=== PATIENT | female | born 1960 | race Caucasian/White ===

== ENCOUNTER 2017-03-27 13:03 | Inpatient (IN) | payer MEDICAID ==
[~2017-03-27] VITALS: Ht 162.6 cm; Wt 82.0 kg
[~2017-03-27 13:03] MED LIST: ALBU8.5H5 INH; AMLO10TA2 PO; ASPI-515 PO; ATOR20TA9 PO; GLIP10TA13 PO; HALO5AMP3 IM; INSU100V3 SQ-INSULIN; LISI40TA PO; MAGN400T26 PO; METF10002 PO; RISP1TAB3 PO; SENN1TAB7 PO; SITA50TA PO; TRIH2TAB3 PO
[2017-03-27 14:01] LABS: DAU SCREEN DISCLAIMER
[2017-03-27 14:04] LABS: ASPARTATE AMINO TRANSFERASE 12 U/L (15-37); BLOOD UREA NITROGEN 7 mg/dL (7-18)
[2017-03-27 14:07] LABS: ACETAMINOPHEN < 2 mcg/mL (10-30)
[2017-03-27] MEDS: SODIUM CHLORIDE 0.9% 1,000 ML IV SCH ×2 (15:53→17:59)
[2017-03-27] MEDS ORDERED: GUAIFENESIN/DM 200-20MG, 10ML UDC PO PRN (16:00)
[2017-03-27] MEDS ORDERED: ONDANSETRON 2MG/ML, 2ML IVPush PRN (16:00)
[2017-03-27] MEDS ORDERED: HYDROcodone/APAP 5/325 TABLET PO PRN (16:00)
[2017-03-27] MEDS: INSULIN ASPART 100 UNITS/ML, PEN SQ-INSULIN SCH ×2 (16:00→21:42)
[2017-03-27 17:09] VITALS: BP 173/87
[2017-03-27 18:27] VITALS: BP 155/76
[2017-03-27] MEDS: FAMOTIDINE 20 MG TABLET PO SCH (21:42)
[2017-03-27] MEDS: RISPERIDONE 1 MG TABLET PO SCH (21:43)
[2017-03-28 00:38] VITALS: BP 139/75
[2017-03-28] MEDS ORDERED: TEMAZEPAM 15 MG CAPSULE PO ONE (01:00)
[2017-03-28 01:01] VITALS: BP 144/81
[2017-03-28 05:49] LABS: BLOOD UREA NITROGEN 11 mg/dL (7-18)
[2017-03-28 06:42] VITALS: BP 145/72
[2017-03-28] MEDS: FAMOTIDINE 20 MG TABLET PO SCH (08:04)
[2017-03-28] MEDS: LISINOPRIL 20 MG TABLET PO SCH (08:05)
[2017-03-28] MEDS: INSULIN ASPART 100 UNITS/ML, PEN SQ-INSULIN SCH ×4 (08:05→21:25)
[2017-03-28] MEDS: SODIUM CHLORIDE 0.9% 1,000 ML IV SCH ×2 (08:06→16:36)
[2017-03-28] MEDS ORDERED: MAGNESIUM SULFATE PMX 2GM/50ML 50 ML IV ONE (09:30)
[2017-03-28 13:21] VITALS: BP 130/70
[2017-03-28] MEDS ORDERED: TEMAZEPAM 15 MG CAPSULE PO PRN (14:30)
[2017-03-28] MEDS: metFORMIN 500 MG TABLET PO SCH (16:36)
[2017-03-28] MEDS: HALOPERIDOL 1 MG TABLET PO PRN ×2 (18:57→19:28)
[2017-03-28 19:21] VITALS: BP 176/85
[2017-03-28] MEDS: RISPERIDONE 1 MG TABLET PO SCH (21:24)
[2017-03-29] MEDS: SODIUM CHLORIDE 0.9% 1,000 ML IV SCH ×2 (00:16→08:19)
[2017-03-29 03:00] VITALS: BP 119/74
[2017-03-29 06:12] LABS: ASPARTATE AMINO TRANSFERASE 5 U/L (15-37); BLOOD UREA NITROGEN 11 mg/dL (7-18)
[2017-03-29 07:43] VITALS: BP 156/72
[2017-03-29] MEDS: INSULIN ASPART 100 UNITS/ML, PEN SQ-INSULIN SCH ×4 (08:20→21:13)
[2017-03-29] MEDS: MAGNESIUM OXIDE 400 MG TABLET PO SCH (08:21)
[2017-03-29] MEDS: metFORMIN 500 MG TABLET PO SCH ×2 (08:22→17:10)
[2017-03-29] MEDS: LISINOPRIL 20 MG TABLET PO SCH (08:22)
[2017-03-29] MEDS ORDERED: MAGNESIUM SULFATE PMX 2GM/50ML 50 ML IV ONE ×2 (08:30)
[2017-03-29] MEDS ORDERED: MAGNESIUM OXIDE 400 MG TABLET PO SCH (09:00)
[2017-03-29 13:14] VITALS: BP 150/74
[2017-03-29] MEDS ORDERED: LISI-170 PO (14:25)
[2017-03-29] MEDS ORDERED: HALO1TAB PO (14:25)
[2017-03-29] MEDS ORDERED: MAGN400T26 PO (14:25)
[2017-03-29 15:28] VITALS: BP 169/83
[2017-03-29] MEDS: HALOPERIDOL 1 MG TABLET PO PRN (19:22)
[2017-03-29 19:31] VITALS: BP 182/88
[2017-03-29] MEDS: RISPERIDONE 1 MG TABLET PO SCH (21:15)
[2017-03-29 21:30] VITALS: BP 122/72
[2017-03-30 08:01] VITALS: BP 153/79
[2017-03-30] MEDS: INSULIN ASPART 100 UNITS/ML, PEN SQ-INSULIN SCH ×4 (08:41→21:07)
[2017-03-30] MEDS: metFORMIN 500 MG TABLET PO SCH ×2 (08:57→17:32)
[2017-03-30] MEDS: MAGNESIUM OXIDE 400 MG TABLET PO SCH (08:57)
[2017-03-30] MEDS: LISINOPRIL 20 MG TABLET PO SCH (08:59)
[2017-03-30] MEDS: ONDANSETRON ODT 4 MG PO PRN (16:08)
[2017-03-30] MEDS: HALOPERIDOL 1 MG TABLET PO PRN (16:32)
[2017-03-30] MEDS ORDERED: MAGNESIUM HYDROXIDE 8%, 30ML UDC PO PRN (17:30)
[2017-03-30] MEDS ORDERED: POLYETHYLENE GLYCOL 17 GM PACKET PO PRN (17:30)
[2017-03-30] MEDS: ACETAMINOPHEN 325 MG TABLET PO PRN (17:32)
[2017-03-30 18:00] VITALS: BP 176/88
[2017-03-30 19:45] VITALS: BP 154/85
[2017-03-30] MEDS: RISPERIDONE 1 MG TABLET PO SCH (21:11)
[2017-03-31 08:30] VITALS: BP 154/84
[2017-03-31] MEDS: metFORMIN 500 MG TABLET PO SCH ×2 (08:41→16:27)
[2017-03-31] MEDS: MAGNESIUM OXIDE 400 MG TABLET PO SCH (08:41)
[2017-03-31] MEDS: LISINOPRIL 20 MG TABLET PO SCH (08:42)
[2017-03-31] MEDS: INSULIN ASPART 100 UNITS/ML, PEN SQ-INSULIN SCH ×4 (08:43→20:38)
[2017-03-31] MEDS: ACETAMINOPHEN 325 MG TABLET PO PRN (14:28)
[2017-03-31 14:34] VITALS: BP 146/75
[2017-03-31 19:26] VITALS: BP 135/74
[2017-03-31] MEDS: RISPERIDONE 1 MG TABLET PO SCH (20:39)
[2017-03-31] MEDS: HALOPERIDOL 1 MG TABLET PO PRN (20:43)
[2017-04-01] MEDS: INSULIN ASPART 100 UNITS/ML, PEN SQ-INSULIN SCH ×5 (08:00→21:00)
[2017-04-01] MEDS: metFORMIN 500 MG TABLET PO SCH ×2 (08:30→17:00)
[2017-04-01] MEDS: LISINOPRIL 20 MG TABLET PO SCH (08:30)
[2017-04-01] MEDS: MAGNESIUM OXIDE 400 MG TABLET PO SCH (08:30)
[2017-04-01] MEDS: RISPERIDONE 1 MG TABLET PO SCH (21:00)
[2017-04-02 08:00] VITALS: BP 142/85
[2017-04-02] MEDS: INSULIN ASPART 100 UNITS/ML, PEN SQ-INSULIN SCH ×4 (08:00→20:45)
[2017-04-02] MEDS: LISINOPRIL 20 MG TABLET PO SCH (08:30)
[2017-04-02] MEDS: MAGNESIUM OXIDE 400 MG TABLET PO SCH (08:30)
[2017-04-02] MEDS: metFORMIN 500 MG TABLET PO SCH ×2 (08:30→16:48)
[2017-04-02 19:20] VITALS: BP 146/78
[2017-04-02] MEDS: HALOPERIDOL 1 MG TABLET PO PRN (20:44)
[2017-04-02] MEDS: RISPERIDONE 1 MG TABLET PO SCH (21:00)
[2017-04-03 07:38] VITALS: BP 114/79
[2017-04-03] MEDS: INSULIN ASPART 100 UNITS/ML, PEN SQ-INSULIN SCH ×4 (07:53→20:18)
[2017-04-03] MEDS: metFORMIN 500 MG TABLET PO SCH ×2 (07:54→16:37)
[2017-04-03] MEDS: MAGNESIUM OXIDE 400 MG TABLET PO SCH (08:16)
[2017-04-03] MEDS: LISINOPRIL 20 MG TABLET PO SCH (08:16)
[2017-04-03] MEDS: ONDANSETRON ODT 4 MG PO PRN (12:25)
[2017-04-03 19:52] VITALS: BP 97/65
[2017-04-03] MEDS: RISPERIDONE 1 MG TABLET PO SCH (21:00)
[2017-04-04 07:24] VITALS: BP 107/70
[2017-04-04] MEDS: metFORMIN 500 MG TABLET PO SCH ×2 (08:15→16:26)
[2017-04-04] MEDS: INSULIN ASPART 100 UNITS/ML, PEN SQ-INSULIN SCH ×4 (08:15→20:00)
[2017-04-04] MEDS: MAGNESIUM OXIDE 400 MG TABLET PO SCH (08:20)
[2017-04-04] MEDS: LISINOPRIL 20 MG TABLET PO SCH (08:20)
[2017-04-04] MEDS: CHOLESTYRAMINE LIGHT 4GM PACKET PO SCH (09:49)
[2017-04-04 13:57] VITALS: BP 131/83
[2017-04-04 19:26] VITALS: BP 129/84
[2017-04-04] MEDS: RISPERIDONE 1 MG TABLET PO SCH (20:00)
[2017-04-04] MEDS: HALOPERIDOL 1 MG TABLET PO PRN (20:02)
[2017-04-05 08:03] VITALS: BP 123/80
[2017-04-05] MEDS: CHOLESTYRAMINE LIGHT 4GM PACKET PO SCH (08:24)
[2017-04-05] MEDS: metFORMIN 500 MG TABLET PO SCH ×2 (08:24→16:15)
[2017-04-05] MEDS: MAGNESIUM OXIDE 400 MG TABLET PO SCH (08:25)
[2017-04-05] MEDS: LISINOPRIL 20 MG TABLET PO SCH (08:25)
[2017-04-05] MEDS: INSULIN ASPART 100 UNITS/ML, PEN SQ-INSULIN SCH ×4 (08:26→20:41)
[2017-04-05 19:22] VITALS: BP 143/80
[2017-04-05] MEDS: RISPERIDONE 1 MG TABLET PO SCH (20:42)
[2017-04-06] MEDS: LISINOPRIL 20 MG TABLET PO SCH (08:13)
[2017-04-06] MEDS: CHOLESTYRAMINE LIGHT 4GM PACKET PO SCH (08:13)
[2017-04-06] MEDS: INSULIN ASPART 100 UNITS/ML, PEN SQ-INSULIN SCH ×4 (08:13→21:05)
[2017-04-06] MEDS: MAGNESIUM OXIDE 400 MG TABLET PO SCH (08:13)
[2017-04-06] MEDS: metFORMIN 500 MG TABLET PO SCH ×2 (08:14→16:16)
[2017-04-06 08:21] VITALS: BP 136/77
[2017-04-06] MEDS: ONDANSETRON ODT 4 MG PO PRN (17:17)
[2017-04-06 17:30] LABS: HCG UR OBC PASS
[2017-04-06] MEDS ORDERED: POLYETHYLENE GLYCOL 17 GM PACKET PO PRN (18:30)
[2017-04-06] MEDS ORDERED: ALUMINUM/MAG/SIMETHICONE 30 ML UDC PO PRN (18:30)
[2017-04-06] MEDS ORDERED: GUAIFENESIN/DM 200-20MG, 10ML UDC PO PRN (18:30)
[2017-04-06 19:20] VITALS: BP 135/83
[2017-04-06] MEDS: TRAZODONE 50MG TABLET PO SCH (21:02)
[2017-04-06] MEDS: RISPERIDONE 1 MG TABLET PO SCH (21:06)
[2017-04-07 07:43] VITALS: BP 94/63
[2017-04-07] MEDS: metFORMIN 500 MG TABLET PO SCH ×2 (08:07→16:34)
[2017-04-07] MEDS: LISINOPRIL 20 MG TABLET PO SCH (08:07)
[2017-04-07] MEDS: CHOLESTYRAMINE LIGHT 4GM PACKET PO SCH (08:07)
[2017-04-07] MEDS: MAGNESIUM OXIDE 400 MG TABLET PO SCH (08:07)
[2017-04-07] MEDS: INSULIN ASPART 100 UNITS/ML, PEN SQ-INSULIN SCH ×4 (08:14→20:17)
[2017-04-07 19:58] VITALS: BP 144/83
[2017-04-07] MEDS: TRAZODONE 50MG TABLET PO SCH (20:13)
[2017-04-07] MEDS: RISPERIDONE 1 MG TABLET PO SCH (20:14)
[2017-04-08 07:48] VITALS: BP 114/74
[2017-04-08] MEDS: metFORMIN 500 MG TABLET PO SCH ×2 (08:21→17:12)
[2017-04-08] MEDS: MAGNESIUM OXIDE 400 MG TABLET PO SCH (08:21)
[2017-04-08] MEDS: LISINOPRIL 20 MG TABLET PO SCH (08:21)
[2017-04-08] MEDS: CHOLESTYRAMINE LIGHT 4GM PACKET PO SCH (08:22)
[2017-04-08] MEDS: INSULIN ASPART 100 UNITS/ML, PEN SQ-INSULIN SCH ×4 (08:22→20:07)
[2017-04-08] MEDS: ACETAMINOPHEN 325 MG TABLET PO PRN (19:15)
[2017-04-08 20:00] VITALS: BP 150/86
[2017-04-08] MEDS: TRAZODONE 50MG TABLET PO SCH (20:07)
[2017-04-08] MEDS: RISPERIDONE 1 MG TABLET PO SCH (20:07)
[2017-04-09] MEDS: INSULIN ASPART 100 UNITS/ML, PEN SQ-INSULIN SCH ×2 (07:30→11:45)
[2017-04-09] MEDS: metFORMIN 500 MG TABLET PO SCH (08:00)
[2017-04-09 08:31] VITALS: BP 121/77
[2017-04-09] MEDS: MAGNESIUM OXIDE 400 MG TABLET PO SCH (08:36)
[2017-04-09] MEDS: LISINOPRIL 20 MG TABLET PO SCH (08:36)
[2017-04-09] MEDS: CHOLESTYRAMINE LIGHT 4GM PACKET PO SCH (08:37)
[2017-04-09] MEDS ORDERED: GLIP5TAB10 PO (12:23)
[2017-04-09] MEDS ORDERED: METF500T PO (12:23)
== END 2017-04-09 13:08 | DRG 641 ==
LOC: ED 15:40 → EDIP 15:42 → ED 15:54 → 3NE 17:02 → 3E 03-29 15:22
PROVIDERS: ADMIT Internal Medicine; ATTEND Internal Medicine
DX: E87.1 Hypo-osmolality and hyponatremia (principal); R45.851 Suicidal ideations; E11.65 Type 2 diabetes mellitus with hyperglycemia; E03.9 Hypothyroidism, unspecified; F20.9 Schizophrenia, unspecified; F22 Delusional disorders; I10 Essential (primary) hypertension; D63.8 Anemia in other chronic diseases classified elsewhere; J44.9 Chronic obstructive pulmonary disease, unspecified; R19.7 Diarrhea, unspecified; E87.6 Hypokalemia; E83.42 Hypomagnesemia; Z59.0 Homelessness; Z91.19 Patient's noncompliance with other medical treatment and regimen; Z90.89 Acquired absence of other organs; Z90.49 Acquired absence of other specified parts of digestive tract; Z98.51 Tubal ligation status
CPT/HCPCS: 36415; 80048; 80053; 80061; 80307; 80329; 81025; 82962; 83036; 83735; 84100; 84443; 84702; 84703; 85025; 93005; J1815; Q0162; G0480; J3475; J7030

== ENCOUNTER 2018-11-20 15:30 | Inpatient (IN) | payer MEDICAID ==
[~2018-11-20] VITALS: Ht 157.5 cm; Wt 82.9 kg
[~2018-11-20 15:30] MED LIST changes: -AMLO10TA2 PO; +AMLO10TA8 PO; +ATOR20TA37 PO; -ATOR20TA9 PO; +CHOL5POW PO; +FAMO-79 PO; +GLIP5TAB10 PO; +HALO1TAB PO; +HYDR-3240 PO; +LISI-170 PO; +METF500T PO; -SENN1TAB7 PO; +SENN1TAB8 PO
[2018-11-20] MEDS ORDERED: ONDANSETRON ODT 4 MG PO PRN (16:00)
[2018-11-20] MEDS ORDERED: ACETAMINOPHEN 325 MG TABLET PO PRN (16:00)
[2018-11-20] MEDS ORDERED: DOCUSATE 100 MG CAPSULE PO PRN (16:00)
[2018-11-20] MEDS ORDERED: POLYETHYLENE GLYCOL 17 GM PACKET PO PRN (16:00)
[2018-11-20] MEDS ORDERED: SENNA/DOCUSATE TABLET PO PRN (16:00)
[2018-11-20] MEDS ORDERED: BISACODYL 10 MG SUPP PR PRN (16:00)
[2018-11-20] MEDS ORDERED: SITA100T PO (16:12)
[2018-11-20] MEDS ORDERED: OXYB10TA PO (16:12)
[2018-11-20] MEDS ORDERED: METF500T17 PO (16:12)
[2018-11-20] MEDS ORDERED: INSU100C5 SQ-INSULIN (16:12)
[2018-11-20] MEDS ORDERED: FAMO20TA7 PO (16:12)
[2018-11-20] MEDS ORDERED: LISI-420 PO (16:12)
[2018-11-20] MEDS ORDERED: INSU100I13 SC (16:12)
[2018-11-20] MEDS ORDERED: FAMO1TAB3 PO (16:12)
[2018-11-20] MEDS ORDERED: Glargine (17:12)
[2018-11-20] MEDS ORDERED: TRAM50TA2 PO (17:14)
[2018-11-20 17:51] VITALS: BP_SYST 167; BP_SYST 170; BP_DIAS 110; BP_DIAS 92
[2018-11-20] MEDS ORDERED: ONDANSETRON ODT 4 MG ONE (17:51)
[2018-11-20] MEDS ORDERED: CALCIUM CARBONATE 500 MG TAB.CHEW ONE ×2 (18:11→18:16)
[2018-11-20] MEDS: CALCIUM CARBONATE 500 MG TAB.CHEW PO PRN (18:18)
[2018-11-20 18:21] VITALS: BP 167/110
[2018-11-20 18:50] VITALS: BP 159/76
[2018-11-20] MEDS ORDERED: GLUCAGON 1 MG IM PRN (20:00)
[2018-11-20] MEDS ORDERED: DEXTROSE 4 GM TAB.CHEW PO PRN (20:00)
[2018-11-20] MEDS ORDERED: DEXTROSE 50%, 50ML SYRINGE IVPush PRN (20:00)
[2018-11-20 20:23] VITALS: BP 158/85
[2018-11-20] MEDS: TRAZODONE 50MG TABLET PO SCH (20:31)
[2018-11-20] MEDS ORDERED: ZIPRASIDONE 20 MG INJ IM ONE ×2 (20:36→21:00)
[2018-11-20] MEDS: INSULIN GLARGINE 100 UNITS/ML, PEN SQ-INSULIN SCH (20:49)
[2018-11-20] MEDS: metFORMIN 500 MG TABLET PO SCH (20:50)
[2018-11-20] MEDS: INSULIN LISPRO 100 UNITS/ML, PEN SQ-INSULIN SCH (20:50)
[2018-11-20] MEDS ORDERED: SODIUM CHLORIDE FLUSH 10ML SYR IVF SCH (21:00)
[2018-11-20 21:40] LABS: CULTURE INDICATED? YES; MICROSCOPIC INDICATED
[2018-11-21 07:57] VITALS: BP 151/80
[2018-11-21] MEDS: INSULIN LISPRO 100 UNITS/ML, PEN SQ-INSULIN SCH ×4 (08:17→19:50)
[2018-11-21] MEDS: metFORMIN 500 MG TABLET PO SCH ×2 (08:18→16:09)
[2018-11-21 08:41] LABS: HCT (SEDRATE) 42.1 % (34.6-47.8)
[2018-11-21 08:53] LABS: ALANINE AMINOTRANSFERASE 14 U/L (12-78); CHLORIDE 93 mmol/L (98-107); CREATININE 0.92 mg/dL (0.55-1.02)
[2018-11-21] MEDS ORDERED: LURASIDONE 20 MG TABLET PO SCH (09:00)
[2018-11-21] MEDS ORDERED: FLUOXETINE HCL 20 MG CAPSULE PO SCH (09:00)
[2018-11-21 09:17] LABS: ALKALINE PHOSPHATASE 77 U/L (45-117); ANION GAP 6 mmol/L (5-15); BILIRUBIN,TOTAL 0.4 mg/dL (0.2-1.0); CALCIUM 9.8 mg/dL (8.5-10.1); CHOL/HDL RATIO 3.6; CHOLESTEROL, TOTAL 175 mg/dL (140-239); HDL CHOL % 27 % (28-40); HDL CHOLESTEROL (DIRECT) 48 mg/dL (40-60); LDL CHOLESTEROL,CALCULATED 105 mg/dL (54-169); LDL/HDL RATIO 2.2 (0.5-3.0); T4 (THYROXINE) 16.2 mcg/dL (4.8-13.9); TOTAL PROTEIN 8.1 g/dL (6.4-8.2); TRIGLYCERIDES 111 mg/dL (50-200); VLDL CHOLESTEROL 22 mg/dL (0-25)
[2018-11-21] MEDS ORDERED: ZIPRASIDONE 20MG CAPSULE ONE (09:17)
[2018-11-21 09:20] VITALS: BP 182/77
[2018-11-21 09:30] LABS: MEAN CORPUSCULAR HEMOGLOBIN 27.9 pg (27.0-34.8); MEAN CORPUSCULAR HGB CONC 33.3 g/dL (32.4-35.8); MEAN CORPUSCULAR VOLUME 83.8 fL (80-100); RED BLOOD COUNT 5.05 x10^6/uL (3.82-5.3); RED CELL DISTRIBUTION WIDTH 13.6 % (9.6-15.2)
[2018-11-21] MEDS ORDERED: ZIPRASIDONE 20MG CAPSULE PO SCH (09:30)
[2018-11-21 09:51] LABS: BASOPHILS # (AUTO) 0.02 x10^3/uL (0-0.1); BASOPHILS % (AUTO) 0 % (0-1); EOSINOPHILS # (AUTO) 0.04 x10^3/uL (0-0.4); EOSINOPHILS % (AUTO) 1 % (1-7); LYMPHOCYTES # (AUTO) 1.29 x10^3/uL (1-3.4); LYMPHOCYTES % (AUTO) 15 % (22-44); MD SCAN; MEAN PLATELET VOLUME 9.9 fL (7.4-10.4); MONOCYTES # (AUTO) 0.41 x10^3/uL (0.2-0.8); MONOCYTES % (AUTO) 5 % (2-9); NEUTROPHILS # (AUTO) 7.17 x10^3/uL (1.8-6.8); NEUTROPHILS % (AUTO) 80 % (42-75); PLATELET COUNT 287 x10^3/uL (130-400)
[2018-11-21] MEDS ORDERED: ZIPRASIDONE 20 MG INJ IM ONE (11:00)
[2018-11-21 11:28] VITALS: BP 165/88
[2018-11-21] MEDS: CALCIUM CARBONATE 500 MG TAB.CHEW PO PRN ×2 (12:15→16:19)
[2018-11-21] MEDS ORDERED: GLUCAGON 1 MG IM PRN (17:30)
[2018-11-21] MEDS ORDERED: DEXTROSE 50%, 50ML SYRINGE IVPush PRN (17:30)
[2018-11-21] MEDS ORDERED: DEXTROSE 4 GM TAB.CHEW PO PRN (17:30)
[2018-11-21] MEDS: CEFTRIAXONE PMX 1GM/50ML 50 ML IV SCH (18:18)
[2018-11-21] MEDS: SODIUM CHLORIDE 0.9% 1,000 ML IV SCH (18:18)
[2018-11-21 18:20] LABS: LDL/HDL RATIO 2.4 (0.5-3.0)
[2018-11-21 18:32] LABS: HEMOGLOBIN A1C 8.1 % (4.2-6.3)
[2018-11-21 18:34] LABS: OSMOLALITY,URINE 252 mOsm/kg (500-850)
[2018-11-21 19:12] VITALS: BP 150/84
[2018-11-21] MEDS: TRAZODONE 50MG TABLET PO SCH (20:58)
[2018-11-21] MEDS: SODIUM CHLORIDE FLUSH 10ML SYR IVF SCH (20:58)
[2018-11-21] MEDS: ZIPRASIDONE 40MG CAPSULE PO SCH (20:58)
[2018-11-21] MEDS: INSULIN GLARGINE 100 UNITS/ML, PEN SQ-INSULIN SCH (20:59)
[2018-11-22] MEDS: SODIUM CHLORIDE 0.9% 1,000 ML IV SCH (02:56)
[2018-11-22 06:18] LABS: ALBUMIN 2.8 g/dL (3.4-5.0); ANION GAP 7 mmol/L (5-15); BASOPHILS # (AUTO) 0.03 x10^3/uL (0-0.1); BASOPHILS % (AUTO) 1 % (0-1); CALCIUM 8.7 mg/dL (8.5-10.1); CHLORIDE 101 mmol/L (98-107); CREATININE 0.74 mg/dL (0.55-1.02); EOSINOPHILS % (AUTO) 1 % (1-7); LYMPHOCYTES # (AUTO) 2.13 x10^3/uL (1-3.4); LYMPHOCYTES % (AUTO) 29 % (22-44); MD NO; MEAN CORPUSCULAR HEMOGLOBIN 28.4 pg (27.0-34.8); MEAN CORPUSCULAR HGB CONC 33.2 g/dL (32.4-35.8); MEAN CORPUSCULAR VOLUME 85.6 fL (80-100); MEAN PLATELET VOLUME 9.3 fL (7.4-10.4); MONOCYTES # (AUTO) 0.43 x10^3/uL (0.2-0.8); MONOCYTES % (AUTO) 6 % (2-9); NEUTROPHILS # (AUTO) 4.76 x10^3/uL (1.8-6.8); NEUTROPHILS % (AUTO) 64 % (42-75); PLATELET COUNT 246 x10^3/uL (130-400); RED BLOOD COUNT 4.08 x10^6/uL (3.82-5.3); RED CELL DISTRIBUTION WIDTH 13.1 % (9.6-15.2)
[2018-11-22] MEDS: INSULIN LISPRO 100 UNITS/ML, PEN SQ-INSULIN SCH ×4 (07:25→20:26)
[2018-11-22 07:30] VITALS: BP 170/83
[2018-11-22] MEDS ORDERED: MAGNESIUM SULFATE 4 GM in SODIUM CHLORIDE 0.9% 100 ML IV ONE (08:30)
[2018-11-22] MEDS: OXYBUTYNIN CHLORIDE 5 MG TABLET PO SCH (08:34)
[2018-11-22] MEDS: MAGNESIUM OXIDE 400 MG TABLET PO SCH (08:34)
[2018-11-22] MEDS: CHOLESTYRAMINE LIGHT 4GM PACKET PO SCH (08:35)
[2018-11-22] MEDS: SODIUM CHLORIDE FLUSH 10ML SYR IVF SCH ×2 (08:35→20:35)
[2018-11-22] MEDS ORDERED: LISINOPRIL 20 MG TABLET PO SCH (09:00)
[2018-11-22] MEDS: CALCIUM CARBONATE 500 MG TAB.CHEW PO PRN (15:04)
[2018-11-22] MEDS: CEFTRIAXONE PMX 1GM/50ML 50 ML IV SCH (18:15)
[2018-11-22 19:37] VITALS: BP 169/73
[2018-11-22] MEDS: INSULIN GLARGINE 100 UNITS/ML, PEN SQ-INSULIN SCH (20:28)
[2018-11-22] MEDS: TRAZODONE 50MG TABLET PO SCH (20:33)
[2018-11-22] MEDS: ZIPRASIDONE 40MG CAPSULE PO SCH (20:33)
[2018-11-22] MEDS: LISINOPRIL 20 MG TABLET PO SCH (20:34)
[2018-11-23] MEDS: CALCIUM CARBONATE 500 MG TAB.CHEW PO PRN ×3 (02:47→17:30)
[2018-11-23 02:57] VITALS: BP 132/78
[2018-11-23 06:25] LABS: ALBUMIN 3.7 g/dL (3.4-5.0); ANION GAP 9 mmol/L (5-15); CHLORIDE 102 mmol/L (98-107)
[2018-11-23 06:26] LABS: CREATININE 0.96 mg/dL (0.55-1.02)
[2018-11-23] MEDS ORDERED: MAGNESIUM SULFATE PMX 2GM/50ML 50 ML IV ONE (07:00)
[2018-11-23 07:36] VITALS: BP 171/84
[2018-11-23] MEDS: INSULIN LISPRO 100 UNITS/ML, PEN SQ-INSULIN SCH ×4 (07:40→21:21)
[2018-11-23] MEDS: SODIUM CHLORIDE FLUSH 10ML SYR IVF SCH ×2 (07:41→21:21)
[2018-11-23] MEDS: MAGNESIUM OXIDE 400 MG TABLET PO SCH (08:46)
[2018-11-23] MEDS: OXYBUTYNIN CHLORIDE 5 MG TABLET PO SCH (08:50)
[2018-11-23] MEDS: LISINOPRIL 20 MG TABLET PO SCH ×2 (08:50→21:20)
[2018-11-23] MEDS: CHOLESTYRAMINE LIGHT 4GM PACKET PO SCH (08:51)
[2018-11-23] MEDS: CEFTRIAXONE PMX 1GM/50ML 50 ML IV SCH (17:42)
[2018-11-23 20:38] VITALS: BP 151/84
[2018-11-23] MEDS: ZIPRASIDONE 40MG CAPSULE PO SCH (21:20)
[2018-11-23] MEDS: TRAZODONE 50MG TABLET PO SCH (21:20)
[2018-11-23] MEDS: INSULIN GLARGINE 100 UNITS/ML, PEN SQ-INSULIN SCH (21:21)
[2018-11-24 07:50] VITALS: BP 148/81
[2018-11-24] MEDS: INSULIN LISPRO 100 UNITS/ML, PEN SQ-INSULIN SCH ×4 (07:59→20:31)
[2018-11-24] MEDS: CHOLESTYRAMINE LIGHT 4GM PACKET PO SCH (08:24)
[2018-11-24] MEDS: OXYBUTYNIN CHLORIDE 5 MG TABLET PO SCH (08:24)
[2018-11-24] MEDS: MAGNESIUM OXIDE 400 MG TABLET PO SCH (08:24)
[2018-11-24] MEDS: CALCIUM CARBONATE 500 MG TAB.CHEW PO PRN (08:25)
[2018-11-24] MEDS: SODIUM CHLORIDE FLUSH 10ML SYR IVF SCH ×2 (08:25→21:10)
[2018-11-24] MEDS: LISINOPRIL 20 MG TABLET PO SCH ×2 (08:25→20:33)
[2018-11-24 20:26] VITALS: BP 169/81
[2018-11-24] MEDS: INSULIN GLARGINE 100 UNITS/ML, PEN SQ-INSULIN SCH (20:32)
[2018-11-24] MEDS: TRAZODONE 50MG TABLET PO SCH (20:33)
[2018-11-24] MEDS: ZIPRASIDONE 40MG CAPSULE PO SCH (20:33)
[2018-11-25] MEDS: CALCIUM CARBONATE 500 MG TAB.CHEW PO PRN (04:41)
[2018-11-25 07:46] VITALS: BP 167/81
[2018-11-25] MEDS: INSULIN LISPRO 100 UNITS/ML, PEN SQ-INSULIN SCH ×4 (07:55→21:17)
[2018-11-25] MEDS: MAGNESIUM OXIDE 400 MG TABLET PO SCH (08:42)
[2018-11-25] MEDS: OXYBUTYNIN CHLORIDE 5 MG TABLET PO SCH (08:42)
[2018-11-25] MEDS: CARBAMAZEPINE XR 200 MG TABLET PO SCH (08:42)
[2018-11-25] MEDS: LISINOPRIL 20 MG TABLET PO SCH ×2 (08:43→21:14)
[2018-11-25] MEDS: CHOLESTYRAMINE LIGHT 4GM PACKET PO SCH (08:43)
[2018-11-25] MEDS: SODIUM CHLORIDE FLUSH 10ML SYR IVF SCH ×2 (09:00→21:05)
[2018-11-25 20:59] VITALS: BP 159/73
[2018-11-25] MEDS: TRAZODONE 50MG TABLET PO SCH (21:13)
[2018-11-25] MEDS: ZIPRASIDONE 40MG CAPSULE PO SCH (21:14)
[2018-11-25] MEDS: INSULIN GLARGINE 100 UNITS/ML, PEN SQ-INSULIN SCH (21:18)
[2018-11-26] MEDS: INSULIN LISPRO 100 UNITS/ML, PEN SQ-INSULIN SCH ×4 (07:31→19:24)
[2018-11-26 07:51] VITALS: BP 166/81
[2018-11-26] MEDS ORDERED: ACETAMINOPHEN 325 MG TABLET ONE (08:30)
[2018-11-26] MEDS: CARBAMAZEPINE XR 200 MG TABLET PO SCH (08:33)
[2018-11-26] MEDS: OXYBUTYNIN CHLORIDE 5 MG TABLET PO SCH (08:33)
[2018-11-26] MEDS: CHOLESTYRAMINE LIGHT 4GM PACKET PO SCH (08:33)
[2018-11-26] MEDS: MAGNESIUM OXIDE 400 MG TABLET PO SCH (08:33)
[2018-11-26] MEDS: LISINOPRIL 20 MG TABLET PO SCH ×2 (08:34→19:23)
[2018-11-26] MEDS ORDERED: DIAZEPAM 5 MG TABLET ONE (18:38)
[2018-11-26] MEDS ORDERED: DIAZEPAM 5 MG TABLET PO ONE (19:00)
[2018-11-26] MEDS: ACETAMINOPHEN 325 MG TABLET PO PRN (19:22)
[2018-11-26] MEDS: ZIPRASIDONE 40MG CAPSULE PO SCH (19:23)
[2018-11-26] MEDS: TRAZODONE 50MG TABLET PO SCH (19:23)
[2018-11-26 19:25] VITALS: BP 107/67
[2018-11-26] MEDS: INSULIN GLARGINE 100 UNITS/ML, PEN SQ-INSULIN SCH (19:25)
[2018-11-27 07:30] VITALS: BP 172/76
[2018-11-27] MEDS: INSULIN LISPRO 100 UNITS/ML, PEN SQ-INSULIN SCH ×4 (08:01→19:27)
[2018-11-27 08:40] VITALS: BP 160/82
[2018-11-27] MEDS: CARBAMAZEPINE XR 200 MG TABLET PO SCH (08:59)
[2018-11-27] MEDS: CHOLESTYRAMINE LIGHT 4GM PACKET PO SCH (08:59)
[2018-11-27] MEDS: OXYBUTYNIN CHLORIDE 5 MG TABLET PO SCH (09:00)
[2018-11-27] MEDS: LISINOPRIL 20 MG TABLET PO SCH ×2 (09:00→19:26)
[2018-11-27] MEDS: MAGNESIUM OXIDE 400 MG TABLET PO SCH (09:00)
[2018-11-27 19:15] VITALS: BP 139/81
[2018-11-27] MEDS: ZIPRASIDONE 40MG CAPSULE PO SCH (19:26)
[2018-11-27] MEDS: TRAZODONE 50MG TABLET PO SCH (19:26)
[2018-11-27] MEDS: INSULIN GLARGINE 100 UNITS/ML, PEN SQ-INSULIN SCH (19:28)
[2018-11-27] MEDS ORDERED: DIAZEPAM 5 MG TABLET PO ONE (19:30)
[2018-11-28] MEDS: INSULIN LISPRO 100 UNITS/ML, PEN SQ-INSULIN SCH ×4 (07:45→20:23)
[2018-11-28 07:46] VITALS: BP 150/85
[2018-11-28] MEDS: OXYBUTYNIN CHLORIDE 5 MG TABLET PO SCH (08:55)
[2018-11-28] MEDS: LISINOPRIL 20 MG TABLET PO SCH ×2 (08:55→20:21)
[2018-11-28] MEDS: MAGNESIUM OXIDE 400 MG TABLET PO SCH (08:55)
[2018-11-28] MEDS: CHOLESTYRAMINE LIGHT 4GM PACKET PO SCH (08:55)
[2018-11-28] MEDS: CARBAMAZEPINE XR 200 MG TABLET PO SCH (08:55)
[2018-11-28] MEDS: ACETAMINOPHEN 325 MG TABLET PO PRN (18:10)
[2018-11-28] MEDS ORDERED: DIAZEPAM 5 MG TABLET ONE (19:36)
[2018-11-28 19:39] VITALS: BP 141/81
[2018-11-28] MEDS: ZIPRASIDONE 40MG CAPSULE PO SCH (20:21)
[2018-11-28] MEDS: INSULIN GLARGINE 100 UNITS/ML, PEN SQ-INSULIN SCH (20:22)
[2018-11-28] MEDS: DIAZEPAM 10 MG TABLET PO SCH (20:22)
[2018-11-29 07:20] VITALS: BP 137/83
[2018-11-29] MEDS: INSULIN LISPRO 100 UNITS/ML, PEN SQ-INSULIN SCH ×4 (07:22→20:35)
[2018-11-29] MEDS: CARBAMAZEPINE XR 200 MG TABLET PO SCH (08:49)
[2018-11-29] MEDS: LISINOPRIL 20 MG TABLET PO SCH ×2 (08:49→20:34)
[2018-11-29] MEDS: OXYBUTYNIN CHLORIDE 5 MG TABLET PO SCH (08:49)
[2018-11-29] MEDS: MAGNESIUM OXIDE 400 MG TABLET PO SCH (08:49)
[2018-11-29] MEDS: CHOLESTYRAMINE LIGHT 4GM PACKET PO SCH (08:50)
[2018-11-29] MEDS: ACETAMINOPHEN 325 MG TABLET PO PRN ×3 (09:56→20:34)
[2018-11-29 18:58] LABS: MICROSCOPIC INDICATED
[2018-11-29 18:59] LABS: CULTURE INDICATED? YES
[2018-11-29 19:48] VITALS: BP 121/78
[2018-11-29] MEDS ORDERED: DIAZEPAM 5 MG TABLET ONE (20:27)
[2018-11-29] MEDS: DIAZEPAM 10 MG TABLET PO SCH (20:34)
[2018-11-29] MEDS: INSULIN GLARGINE 100 UNITS/ML, PEN SQ-INSULIN SCH (20:35)
[2018-11-29] MEDS: ZIPRASIDONE 40MG CAPSULE PO SCH (20:35)
[2018-11-30] MEDS: INSULIN LISPRO 100 UNITS/ML, PEN SQ-INSULIN SCH ×4 (07:00→21:42)
[2018-11-30 08:23] VITALS: BP 149/83
[2018-11-30] MEDS: CHOLESTYRAMINE LIGHT 4GM PACKET PO SCH (09:00)
[2018-11-30] MEDS: LISINOPRIL 20 MG TABLET PO SCH ×2 (09:00→21:00)
[2018-11-30] MEDS: MAGNESIUM OXIDE 400 MG TABLET PO SCH (09:19)
[2018-11-30] MEDS: OXYBUTYNIN CHLORIDE 5 MG TABLET PO SCH (09:19)
[2018-11-30] MEDS: CARBAMAZEPINE XR 200 MG TABLET PO SCH (09:20)
[2018-11-30 19:56] VITALS: BP 154/81
[2018-11-30] MEDS: DIAZEPAM 10 MG TABLET PO SCH (21:00)
[2018-11-30] MEDS ORDERED: DIAZEPAM 5 MG TABLET ONE (21:35)
[2018-11-30] MEDS: ZIPRASIDONE 40MG CAPSULE PO SCH (21:39)
[2018-11-30] MEDS: INSULIN GLARGINE 100 UNITS/ML, PEN SQ-INSULIN SCH (21:42)
[2018-12-01 07:46] VITALS: BP 137/83
[2018-12-01] MEDS: INSULIN LISPRO 100 UNITS/ML, PEN SQ-INSULIN SCH ×4 (07:58→21:22)
[2018-12-01] MEDS: OXYBUTYNIN CHLORIDE 5 MG TABLET PO SCH (08:26)
[2018-12-01] MEDS: MAGNESIUM OXIDE 400 MG TABLET PO SCH (08:26)
[2018-12-01] MEDS: CHOLESTYRAMINE LIGHT 4GM PACKET PO SCH (08:29)
[2018-12-01] MEDS: LISINOPRIL 20 MG TABLET PO SCH ×2 (08:30→20:28)
[2018-12-01] MEDS: CARBAMAZEPINE XR 200 MG TABLET PO SCH ×2 (08:34→21:00)
[2018-12-01] MEDS: ACETAMINOPHEN 325 MG TABLET PO PRN (11:54)
[2018-12-01 19:48] VITALS: BP 184/97
[2018-12-01] MEDS ORDERED: DIAZEPAM 5 MG TABLET ONE (20:18)
[2018-12-01] MEDS: ZIPRASIDONE 40MG CAPSULE PO SCH (20:28)
[2018-12-01] MEDS: DIAZEPAM 10 MG TABLET PO SCH (20:31)
[2018-12-01] MEDS: INSULIN GLARGINE 100 UNITS/ML, PEN SQ-INSULIN SCH (21:24)
[2018-12-02 08:00] VITALS: BP 166/88
[2018-12-02] MEDS: CARBAMAZEPINE XR 200 MG TABLET PO SCH ×2 (08:49→20:19)
[2018-12-02] MEDS: OXYBUTYNIN CHLORIDE 5 MG TABLET PO SCH (08:49)
[2018-12-02] MEDS: LISINOPRIL 20 MG TABLET PO SCH ×2 (08:50→20:19)
[2018-12-02] MEDS: CHOLESTYRAMINE LIGHT 4GM PACKET PO SCH (08:50)
[2018-12-02] MEDS: MAGNESIUM OXIDE 400 MG TABLET PO SCH (08:50)
[2018-12-02] MEDS: INSULIN LISPRO 100 UNITS/ML, PEN SQ-INSULIN SCH ×4 (09:50→20:31)
[2018-12-02] MEDS ORDERED: DIAZEPAM 5 MG TABLET ONE (20:17)
[2018-12-02] MEDS: ZIPRASIDONE 40MG CAPSULE PO SCH (20:18)
[2018-12-02] MEDS: DIAZEPAM 10 MG TABLET PO SCH (20:21)
[2018-12-02] MEDS: INSULIN GLARGINE 100 UNITS/ML, PEN SQ-INSULIN SCH (20:32)
[2018-12-02 21:05] VITALS: BP 176/95
[2018-12-03] MEDS: INSULIN LISPRO 100 UNITS/ML, PEN SQ-INSULIN SCH ×4 (07:00→20:51)
[2018-12-03 07:41] VITALS: BP 152/86
[2018-12-03] MEDS: CARBAMAZEPINE XR 200 MG TABLET PO SCH ×2 (08:22→20:26)
[2018-12-03] MEDS: MAGNESIUM OXIDE 400 MG TABLET PO SCH (08:22)
[2018-12-03] MEDS: LISINOPRIL 20 MG TABLET PO SCH ×2 (08:22→20:26)
[2018-12-03] MEDS: OXYBUTYNIN CHLORIDE 5 MG TABLET PO SCH (08:22)
[2018-12-03] MEDS: CHOLESTYRAMINE LIGHT 4GM PACKET PO SCH (08:24)
[2018-12-03] MEDS: ACETAMINOPHEN 325 MG TABLET PO PRN ×2 (11:34→20:35)
[2018-12-03 19:38] VITALS: BP 163/91
[2018-12-03] MEDS: ZIPRASIDONE 40MG CAPSULE PO SCH (20:25)
[2018-12-03] MEDS ORDERED: DIAZEPAM 5 MG TABLET ONE (20:31)
[2018-12-03] MEDS: DIAZEPAM 10 MG TABLET PO SCH (20:34)
[2018-12-03] MEDS: INSULIN GLARGINE 100 UNITS/ML, PEN SQ-INSULIN SCH (20:52)
[2018-12-04] MEDS: INSULIN LISPRO 100 UNITS/ML, PEN SQ-INSULIN SCH ×4 (07:28→20:48)
[2018-12-04 07:48] VITALS: BP 135/75
[2018-12-04] MEDS: CARBAMAZEPINE XR 200 MG TABLET PO SCH ×2 (08:21→20:39)
[2018-12-04] MEDS: CHOLESTYRAMINE LIGHT 4GM PACKET PO SCH (08:21)
[2018-12-04] MEDS: MAGNESIUM OXIDE 400 MG TABLET PO SCH (08:22)
[2018-12-04] MEDS: OXYBUTYNIN CHLORIDE 5 MG TABLET PO SCH (08:22)
[2018-12-04] MEDS: LISINOPRIL 20 MG TABLET PO SCH ×2 (08:22→20:39)
[2018-12-04] MEDS: CALCIUM CARBONATE 500 MG TAB.CHEW PO PRN (15:09)
[2018-12-04] MEDS: ACETAMINOPHEN 325 MG TABLET PO PRN (15:09)
[2018-12-04 19:33] VITALS: BP 168/118
[2018-12-04] MEDS ORDERED: DIAZEPAM 2 MG TABLET ONE (20:34)
[2018-12-04] MEDS ORDERED: DIAZEPAM 5 MG TABLET ONE (20:34)
[2018-12-04] MEDS: ZIPRASIDONE 40MG CAPSULE PO SCH (20:37)
[2018-12-04] MEDS: INSULIN GLARGINE 100 UNITS/ML, PEN SQ-INSULIN SCH ×2 (20:40→20:47)
[2018-12-04] MEDS: DIAZEPAM 10 MG TABLET PO SCH (21:00)
[2018-12-04 21:22] VITALS: BP 134/84
[2018-12-04] MEDS: LEVOFLOXACIN 250 MG TABLET PO SCH ×2 (22:47→22:55)
[2018-12-05] MEDS: ACETAMINOPHEN 325 MG TABLET PO PRN ×2 (01:27→20:44)
[2018-12-05] MEDS: INSULIN LISPRO 100 UNITS/ML, PEN SQ-INSULIN SCH ×4 (07:00→20:49)
[2018-12-05 08:04] VITALS: BP 145/87
[2018-12-05] MEDS: MAGNESIUM OXIDE 400 MG TABLET PO SCH (08:37)
[2018-12-05] MEDS: CARBAMAZEPINE XR 200 MG TABLET PO SCH ×2 (08:37→20:42)
[2018-12-05] MEDS: OXYBUTYNIN CHLORIDE 5 MG TABLET PO SCH (08:37)
[2018-12-05] MEDS: LISINOPRIL 20 MG TABLET PO SCH ×2 (08:37→20:42)
[2018-12-05] MEDS: CHOLESTYRAMINE LIGHT 4GM PACKET PO SCH (08:38)
[2018-12-05 19:20] VITALS: BP 156/85
[2018-12-05] MEDS ORDERED: DIAZEPAM 5 MG TABLET ONE (20:32)
[2018-12-05] MEDS: ZIPRASIDONE 40MG CAPSULE PO SCH (20:41)
[2018-12-05] MEDS: DIAZEPAM 10 MG TABLET PO SCH (20:42)
[2018-12-05] MEDS: LEVOFLOXACIN 250 MG TABLET PO SCH (22:38)
[2018-12-06 07:13] VITALS: BP 160/96
[2018-12-06] MEDS: INSULIN LISPRO 100 UNITS/ML, PEN SQ-INSULIN SCH ×4 (07:26→20:14)
[2018-12-06] MEDS: CHOLESTYRAMINE LIGHT 4GM PACKET PO SCH (08:31)
[2018-12-06] MEDS: LISINOPRIL 20 MG TABLET PO SCH ×2 (08:32→20:12)
[2018-12-06] MEDS: OXYBUTYNIN CHLORIDE 5 MG TABLET PO SCH (08:32)
[2018-12-06] MEDS: MAGNESIUM OXIDE 400 MG TABLET PO SCH (08:32)
[2018-12-06] MEDS: CARBAMAZEPINE XR 200 MG TABLET PO SCH ×2 (08:32→20:11)
[2018-12-06] MEDS: ACETAMINOPHEN 325 MG TABLET PO PRN ×2 (11:30→20:11)
[2018-12-06 19:34] VITALS: BP 154/85
[2018-12-06] MEDS ORDERED: DIAZEPAM 5 MG TABLET ONE (20:03)
[2018-12-06] MEDS: ZIPRASIDONE 40MG CAPSULE PO SCH (20:10)
[2018-12-06] MEDS: DIAZEPAM 10 MG TABLET PO SCH ×3 (20:12→23:39)
[2018-12-06] MEDS: LEVOFLOXACIN 250 MG TABLET PO SCH (20:13)
[2018-12-06] MEDS: INSULIN GLARGINE 100 UNITS/ML, PEN SQ-INSULIN SCH (20:25)
[2018-12-07 07:32] VITALS: BP 174/92
[2018-12-07] MEDS: INSULIN LISPRO 100 UNITS/ML, PEN SQ-INSULIN SCH ×4 (08:00→20:15)
[2018-12-07 08:05] VITALS: BP 168/92
[2018-12-07] MEDS: MAGNESIUM OXIDE 400 MG TABLET PO SCH (08:38)
[2018-12-07] MEDS: CHOLESTYRAMINE LIGHT 4GM PACKET PO SCH (08:39)
[2018-12-07] MEDS: CARBAMAZEPINE XR 200 MG TABLET PO SCH ×2 (08:39→20:03)
[2018-12-07] MEDS: LISINOPRIL 20 MG TABLET PO SCH ×2 (08:40→20:03)
[2018-12-07] MEDS: OXYBUTYNIN CHLORIDE 5 MG TABLET PO SCH (08:40)
[2018-12-07 10:02] VITALS: BP 165/91
[2018-12-07] MEDS: ACETAMINOPHEN 325 MG TABLET PO PRN (10:47)
[2018-12-07 19:44] VITALS: BP 145/83
[2018-12-07] MEDS: ZIPRASIDONE 40MG CAPSULE PO SCH (20:03)
[2018-12-07] MEDS: INSULIN GLARGINE 100 UNITS/ML, PEN SQ-INSULIN SCH (20:16)
[2018-12-07] MEDS: LEVOFLOXACIN 250 MG TABLET PO SCH (23:00)
[2018-12-07] MEDS ORDERED: DIAZEPAM 5 MG TABLET ONE (23:34)
[2018-12-08 07:42] VITALS: BP 165/82
[2018-12-08] MEDS: INSULIN LISPRO 100 UNITS/ML, PEN SQ-INSULIN SCH ×4 (08:07→20:17)
[2018-12-08] MEDS: MAGNESIUM OXIDE 400 MG TABLET PO SCH (08:08)
[2018-12-08] MEDS: OXYBUTYNIN CHLORIDE 5 MG TABLET PO SCH (08:08)
[2018-12-08] MEDS: CHOLESTYRAMINE LIGHT 4GM PACKET PO SCH (08:09)
[2018-12-08] MEDS: LISINOPRIL 20 MG TABLET PO SCH ×2 (08:09→20:09)
[2018-12-08] MEDS: CARBAMAZEPINE XR 200 MG TABLET PO SCH ×2 (08:09→20:10)
[2018-12-08] MEDS: ACETAMINOPHEN 325 MG TABLET PO PRN ×2 (11:57→20:09)
[2018-12-08 19:42] VITALS: BP 154/90
[2018-12-08] MEDS ORDERED: DIAZEPAM 5 MG TABLET ONE (20:06)
[2018-12-08] MEDS: DIAZEPAM 10 MG TABLET PO SCH (20:10)
[2018-12-08] MEDS: ZIPRASIDONE 40MG CAPSULE PO SCH (20:12)
[2018-12-08] MEDS: INSULIN GLARGINE 100 UNITS/ML, PEN SQ-INSULIN SCH (20:17)
[2018-12-08] MEDS: LEVOFLOXACIN 250 MG TABLET PO SCH (20:26)
[2018-12-09] MEDS: INSULIN LISPRO 100 UNITS/ML, PEN SQ-INSULIN SCH ×4 (07:00→21:13)
[2018-12-09 07:49] VITALS: BP 134/83
[2018-12-09] MEDS: OXYBUTYNIN CHLORIDE 5 MG TABLET PO SCH (08:15)
[2018-12-09] MEDS: CARBAMAZEPINE XR 200 MG TABLET PO SCH ×2 (08:15→20:17)
[2018-12-09] MEDS: LISINOPRIL 20 MG TABLET PO SCH ×2 (08:15→20:18)
[2018-12-09] MEDS: MAGNESIUM OXIDE 400 MG TABLET PO SCH (08:15)
[2018-12-09] MEDS: CHOLESTYRAMINE LIGHT 4GM PACKET PO SCH (08:16)
[2018-12-09] MEDS: ACETAMINOPHEN 325 MG TABLET PO PRN (08:17)
[2018-12-09 19:15] VITALS: BP 143/83
[2018-12-09] MEDS ORDERED: DIAZEPAM 5 MG TABLET ONE (20:14)
[2018-12-09] MEDS: DIAZEPAM 10 MG TABLET PO SCH (20:17)
[2018-12-09] MEDS: ZIPRASIDONE 40MG CAPSULE PO SCH (20:18)
[2018-12-09] MEDS: INSULIN GLARGINE 100 UNITS/ML, PEN SQ-INSULIN SCH (21:14)
[2018-12-09] MEDS: LEVOFLOXACIN 250 MG TABLET PO SCH (23:00)
[2018-12-10] MEDS: INSULIN LISPRO 100 UNITS/ML, PEN SQ-INSULIN SCH ×4 (07:56→21:55)
[2018-12-10 08:02] VITALS: BP 132/79
[2018-12-10] MEDS: CARBAMAZEPINE XR 200 MG TABLET PO SCH ×2 (08:10→21:00)
[2018-12-10] MEDS: MAGNESIUM OXIDE 400 MG TABLET PO SCH (08:10)
[2018-12-10] MEDS: OXYBUTYNIN CHLORIDE 5 MG TABLET PO SCH (08:10)
[2018-12-10] MEDS: LISINOPRIL 20 MG TABLET PO SCH ×2 (08:11→21:00)
[2018-12-10] MEDS: CHOLESTYRAMINE LIGHT 4GM PACKET PO SCH (08:11)
[2018-12-10] MEDS: ACETAMINOPHEN 325 MG TABLET PO PRN (14:18)
[2018-12-10 19:10] VITALS: BP 152/79
[2018-12-10] MEDS: ZIPRASIDONE 40MG CAPSULE PO SCH (21:00)
[2018-12-10] MEDS: INSULIN GLARGINE 100 UNITS/ML, PEN SQ-INSULIN SCH (21:00)
[2018-12-10] MEDS: DIAZEPAM 10 MG TABLET PO SCH (21:00)
[2018-12-10] MEDS ORDERED: DIAZEPAM 5 MG TABLET ONE (21:12)
[2018-12-10] MEDS: LEVOFLOXACIN 250 MG TABLET PO SCH (21:30)
[2018-12-11 07:15] VITALS: BP 145/84
[2018-12-11] MEDS: INSULIN LISPRO 100 UNITS/ML, PEN SQ-INSULIN SCH ×4 (07:47→20:01)
[2018-12-11] MEDS: CARBAMAZEPINE XR 200 MG TABLET PO SCH ×2 (09:00→19:57)
[2018-12-11] MEDS: LISINOPRIL 20 MG TABLET PO SCH ×2 (09:00→19:58)
[2018-12-11] MEDS: OXYBUTYNIN CHLORIDE 5 MG TABLET PO SCH (09:15)
[2018-12-11] MEDS: MAGNESIUM OXIDE 400 MG TABLET PO SCH (09:15)
[2018-12-11] MEDS: CHOLESTYRAMINE LIGHT 4GM PACKET PO SCH (09:16)
[2018-12-11] MEDS: ACETAMINOPHEN 325 MG TABLET PO PRN ×2 (09:45→17:02)
[2018-12-11 19:24] VITALS: BP 146/83
[2018-12-11] MEDS ORDERED: DIAZEPAM 5 MG TABLET ONE (19:52)
[2018-12-11] MEDS: DIAZEPAM 10 MG TABLET PO SCH (19:58)
[2018-12-11] MEDS: ZIPRASIDONE 40MG CAPSULE PO SCH (19:59)
[2018-12-11] MEDS: INSULIN GLARGINE 100 UNITS/ML, PEN SQ-INSULIN SCH (20:01)
[2018-12-11] MEDS: LEVOFLOXACIN 250 MG TABLET PO SCH (21:41)
[2018-12-12] MEDS: INSULIN LISPRO 100 UNITS/ML, PEN SQ-INSULIN SCH ×4 (07:00→20:45)
[2018-12-12 07:18] VITALS: BP 157/83
[2018-12-12] MEDS: OXYBUTYNIN CHLORIDE 5 MG TABLET PO SCH (08:34)
[2018-12-12] MEDS: LISINOPRIL 20 MG TABLET PO SCH ×2 (08:34→20:00)
[2018-12-12] MEDS: CHOLESTYRAMINE LIGHT 4GM PACKET PO SCH (08:34)
[2018-12-12] MEDS: MAGNESIUM OXIDE 400 MG TABLET PO SCH (08:34)
[2018-12-12] MEDS: CARBAMAZEPINE XR 200 MG TABLET PO SCH ×2 (08:35→20:00)
[2018-12-12] MEDS ORDERED: DIAZEPAM 5 MG TABLET ONE (19:52)
[2018-12-12 19:54] VITALS: BP 168/104
[2018-12-12] MEDS: ZIPRASIDONE 40MG CAPSULE PO SCH (19:59)
[2018-12-12] MEDS: DIAZEPAM 10 MG TABLET PO SCH (20:01)
[2018-12-12] MEDS: ACETAMINOPHEN 325 MG TABLET PO PRN (20:01)
[2018-12-12] MEDS: LEVOFLOXACIN 250 MG TABLET PO SCH (20:44)
[2018-12-12] MEDS: INSULIN GLARGINE 100 UNITS/ML, PEN SQ-INSULIN SCH (20:51)
[2018-12-13] MEDS: INSULIN LISPRO 100 UNITS/ML, PEN SQ-INSULIN SCH ×4 (07:00→20:33)
[2018-12-13 07:12] VITALS: BP 161/82
[2018-12-13] MEDS: CHOLESTYRAMINE LIGHT 4GM PACKET PO SCH (08:16)
[2018-12-13] MEDS: LISINOPRIL 20 MG TABLET PO SCH ×2 (08:17→20:27)
[2018-12-13] MEDS: OXYBUTYNIN CHLORIDE 5 MG TABLET PO SCH (08:17)
[2018-12-13] MEDS: CARBAMAZEPINE XR 200 MG TABLET PO SCH ×2 (08:17→20:24)
[2018-12-13] MEDS: MAGNESIUM OXIDE 400 MG TABLET PO SCH (08:17)
[2018-12-13 19:27] VITALS: BP 157/92
[2018-12-13] MEDS ORDERED: DIAZEPAM 5 MG TABLET ONE (20:06)
[2018-12-13] MEDS: DIAZEPAM 10 MG TABLET PO SCH (20:25)
[2018-12-13] MEDS: ZIPRASIDONE 40MG CAPSULE PO SCH (20:27)
[2018-12-13] MEDS: INSULIN GLARGINE 100 UNITS/ML, PEN SQ-INSULIN SCH (20:34)
[2018-12-13] MEDS: LEVOFLOXACIN 250 MG TABLET PO SCH (23:00)
[2018-12-14 07:41] VITALS: BP 160/89
[2018-12-14] MEDS: INSULIN LISPRO 100 UNITS/ML, PEN SQ-INSULIN SCH ×4 (07:57→21:01)
[2018-12-14] MEDS: MAGNESIUM OXIDE 400 MG TABLET PO SCH (08:05)
[2018-12-14] MEDS: OXYBUTYNIN CHLORIDE 5 MG TABLET PO SCH (08:05)
[2018-12-14] MEDS: CARBAMAZEPINE XR 200 MG TABLET PO SCH ×2 (08:06→20:27)
[2018-12-14] MEDS: LISINOPRIL 20 MG TABLET PO SCH ×2 (08:06→20:26)
[2018-12-14] MEDS: CHOLESTYRAMINE LIGHT 4GM PACKET PO SCH (08:07)
[2018-12-14 19:23] VITALS: BP 147/88
[2018-12-14] MEDS ORDERED: DIAZEPAM 5 MG TABLET ONE (20:24)
[2018-12-14] MEDS: ZIPRASIDONE 40MG CAPSULE PO SCH (20:26)
[2018-12-14] MEDS: LEVOFLOXACIN 250 MG TABLET PO SCH (20:26)
[2018-12-14] MEDS: DIAZEPAM 10 MG TABLET PO SCH (20:27)
[2018-12-14] MEDS: INSULIN GLARGINE 100 UNITS/ML, PEN SQ-INSULIN SCH (21:02)
[2018-12-15 07:18] VITALS: BP 128/81
[2018-12-15] MEDS: INSULIN LISPRO 100 UNITS/ML, PEN SQ-INSULIN SCH ×4 (07:39→20:46)
[2018-12-15] MEDS: CARBAMAZEPINE XR 200 MG TABLET PO SCH ×2 (08:42→20:42)
[2018-12-15] MEDS: OXYBUTYNIN CHLORIDE 5 MG TABLET PO SCH (08:42)
[2018-12-15] MEDS: MAGNESIUM OXIDE 400 MG TABLET PO SCH (08:42)
[2018-12-15] MEDS: CHOLESTYRAMINE LIGHT 4GM PACKET PO SCH (08:43)
[2018-12-15] MEDS: LISINOPRIL 20 MG TABLET PO SCH ×2 (08:43→20:44)
[2018-12-15] MEDS: ACETAMINOPHEN 325 MG TABLET PO PRN (17:02)
[2018-12-15 19:29] VITALS: BP 152/83
[2018-12-15] MEDS ORDERED: DIAZEPAM 5 MG TABLET ONE (20:37)
[2018-12-15] MEDS: ZIPRASIDONE 40MG CAPSULE PO SCH (20:43)
[2018-12-15] MEDS: LEVOFLOXACIN 250 MG TABLET PO SCH (20:43)
[2018-12-15] MEDS: DIAZEPAM 10 MG TABLET PO SCH (20:44)
[2018-12-15] MEDS: INSULIN GLARGINE 100 UNITS/ML, PEN SQ-INSULIN SCH (20:45)
[2018-12-16 07:10] VITALS: BP 135/81
[2018-12-16] MEDS: INSULIN LISPRO 100 UNITS/ML, PEN SQ-INSULIN SCH ×4 (08:01→20:43)
[2018-12-16] MEDS: CARBAMAZEPINE XR 200 MG TABLET PO SCH ×2 (09:28→20:33)
[2018-12-16] MEDS: OXYBUTYNIN CHLORIDE 5 MG TABLET PO SCH (09:29)
[2018-12-16] MEDS: MAGNESIUM OXIDE 400 MG TABLET PO SCH (09:29)
[2018-12-16] MEDS: LISINOPRIL 20 MG TABLET PO SCH ×2 (09:30→20:33)
[2018-12-16] MEDS: CHOLESTYRAMINE LIGHT 4GM PACKET PO SCH (09:31)
[2018-12-16] MEDS: ACETAMINOPHEN 325 MG TABLET PO PRN (15:22)
[2018-12-16] MEDS ORDERED: ZIPR20CA2 PO (17:03)
[2018-12-16] MEDS ORDERED: DIAZ10TA4 PO (17:03)
[2018-12-16] MEDS ORDERED: CHOL239. PO (17:03)
[2018-12-16] MEDS ORDERED: ZIPR40CA2 PO (17:03)
[2018-12-16] MEDS ORDERED: CARB200T2 PO (17:03)
[2018-12-16 19:50] VITALS: BP 156/88
[2018-12-16] MEDS ORDERED: DIAZEPAM 5 MG TABLET ONE (20:30)
[2018-12-16] MEDS: DIAZEPAM 10 MG TABLET PO SCH (20:34)
[2018-12-16] MEDS: ZIPRASIDONE 40MG CAPSULE PO SCH (20:34)
[2018-12-16] MEDS: INSULIN GLARGINE 100 UNITS/ML, PEN SQ-INSULIN SCH (20:42)
[2018-12-16] MEDS: LEVOFLOXACIN 250 MG TABLET PO SCH (21:00)
[2018-12-17 07:35] VITALS: BP 150/81
[2018-12-17] MEDS: OXYBUTYNIN CHLORIDE 5 MG TABLET PO SCH (08:07)
[2018-12-17] MEDS: CARBAMAZEPINE XR 200 MG TABLET PO SCH (08:07)
[2018-12-17] MEDS: INSULIN LISPRO 100 UNITS/ML, PEN SQ-INSULIN SCH (08:07)
[2018-12-17] MEDS: MAGNESIUM OXIDE 400 MG TABLET PO SCH (08:07)
[2018-12-17] MEDS: LISINOPRIL 20 MG TABLET PO SCH (08:07)
[2018-12-17] MEDS: ACETAMINOPHEN 325 MG TABLET PO PRN (08:08)
[2018-12-17] MEDS: CHOLESTYRAMINE LIGHT 4GM PACKET PO SCH (08:10)
== END 2018-12-17 10:30 | DRG 885 ==
LOC: 3E 17:42
PROVIDERS: ADMIT Psychiatry & Neurology Psychosomatic Medicine; ATTEND Psychiatry & Neurology Psychosomatic Medicine
DX: F20.0 Paranoid schizophrenia (principal); E87.1 Hypo-osmolality and hyponatremia; N39.0 Urinary tract infection, site not specified; R45.851 Suicidal ideations; E03.9 Hypothyroidism, unspecified; E11.65 Type 2 diabetes mellitus with hyperglycemia; E78.5 Hyperlipidemia, unspecified; R07.9 Chest pain, unspecified; F12.10 Cannabis abuse, uncomplicated; E66.9 Obesity, unspecified; F09 Unspecified mental disorder due to known physiological condition; F32.9 Major depressive disorder, single episode, unspecified; G47.00 Insomnia, unspecified; I10 Essential (primary) hypertension; K21.9 Gastro-esophageal reflux disease without esophagitis; Z79.4 Long term (current) use of insulin; Z79.899 Other long term (current) drug therapy; Z87.820 Personal history of traumatic brain injury; Z87.891 Personal history of nicotine dependence; Z91.19 Patient's noncompliance with other medical treatment and regimen; Z81.1 Family history of alcohol abuse and dependence; Z83.3 Family history of diabetes mellitus; Z98.51 Tubal ligation status; Z68.33 Body mass index [BMI] 33.0-33.9, adult
CPT/HCPCS: 36415; 71045; 80048; 80053; 80061; 81001; 82040; 82140; 82607; 82947; 82962; 83036; 83605; 83735; 83930; 83935; 84100; 84146; 84436; 84443; 85025; 85651; 86592; 87040; 87077; 87086; 87186; 93005; J0696; J3475; J3486; Q0162; 92523-GN; J1815; J7030